=== PATIENT | female | born 1990 | race Caucasian/White ===

== ENCOUNTER 2021-02-05 00:50 | Inpatient (IN) | payer OTHER ==
[2021-02-05] MEDS ORDERED: BUTORPHANOL TARTRATE 1 MG/ML VIAL IVPB ONE (01:05)
[2021-02-05] MEDS ORDERED: PROMETHAZINE HCL 25 MG/1 ML VIAL IVPB ONE (01:05)
[2021-02-05] MEDS ORDERED: DEXTROSE 5%-LACTATED RINGERS 1,000 ML IV SCH (01:05)
[2021-02-05] MEDS: DEXTROSE 5%-LACTATED RINGERS 1,000 ML IV SCH (01:30)
[2021-02-05 02:00] LABS: BASO % 0.2 % (0-2.0); HEMATOCRIT 32.8 % (32.4-45.2); HEMOGLOBIN 11.2 GM/dL (10.7-15.3); LYMPH % 23.5 % (8-40); MCH 27.5 pg (25.7-33.7); MCHC 34.2 g/dl (32.0-36.0); MEAN CELL VOLUME 80.5 fl (80-96); MEAN PLT VOLUME 10.3 fl (7.5-11.1); MONO % 7.2 % (3.8-10.2); NEUT % 68.1 % (42.8-82.8); PLATELET COUNT 201 10^3/uL (134-434); RBC 4.08 M/mm3 (3.60-5.2); RDW 13.4 % (11.6-15.6); WHITE BLOOD COUNT 9.3 K/mm3 (4.0-10.0)
[2021-02-05 02:07] LABS: INR 0.9 (0.83-1.09); PROTHROMBIN TIME (PATIENT) 10.5 SEC (9.7-13.0)
[2021-02-05 02:10] LABS: ACTIVATED PTT 27.7 SECONDS (25.2-36.5)
[2021-02-05 02:16] LABS: CALCIUM 8.2 mg/dL (8.5-10.1)
[2021-02-05 02:17] LABS: BLOOD UREA NITROGEN 12.6 mg/dL (7-18)
[2021-02-05 02:20] LABS: CREATININE 0.6 mg/dL (0.55-1.3)
[2021-02-05 02:37] VITALS: BMI 39.4
[2021-02-05 02:45] LABS: SYPHILIS W/ RPR CONF NON-REACTIVE (NONREACTIVE)
[2021-02-05 03:14] LABS: HIV INTERPRETATION NEGATIVE (NEGATIVE)
[2021-02-05] MEDS ORDERED: OXYTOCIN 20 UNITS in 0.9% NS 20 UNIT/1,000 ML INFUS.BAG IV ONE (03:52)
[2021-02-05] MEDS ORDERED: LIDOCAINE HCL 1% PRESERVATIVE FREE - 30ML VIAL ONE (03:53)
[2021-02-05] MEDS: IBUPROFEN 600 MG TABLET (FP) PO PRN ×2 (04:30→10:16)
[2021-02-05] MEDS ORDERED: IBUPROFEN 600 MG TABLET (FP) PO ONE (04:31)
[2021-02-05] MEDS ORDERED: ACETAMINOPHEN 325 MG TABLET (FP) ONE (04:31)
[2021-02-05] MEDS ORDERED: WITCH HAZEL 50% (TUCKS) 40 PAD/JAR PAD TP PRN (04:34)
[2021-02-05] MEDS ORDERED: BENZOCAINE 28 GM HEMORRHOIDAL OINTMENT TP PRN (04:34)
[2021-02-05] MEDS ORDERED: oxyCODONE HCL 5 MG TABLET PO PRN (04:34)
[2021-02-05] MEDS ORDERED: METHYLERGONOVINE MALEATE 0.2 MG/1 ML AMP IM PRN (04:34)
[2021-02-05] MEDS ORDERED: BENZOCAINE 20% 57 GM BOTTLE TP PRN (04:34)
[2021-02-05] MEDS ORDERED: BISACODYL 10 MG SUPP.RECT RC PRN (04:34)
[2021-02-05] MEDS ORDERED: ACETAMINOPHEN 325 MG TABLET (FP) PO PRN (04:34)
[2021-02-05] MEDS ORDERED: OXYTOCIN 20 UNITS in 0.9% NS 20 UNIT/1,000 ML INFUS.BAG IV SCH (04:45)
[2021-02-05] MEDS: PRENATAL VITAMINS W/ FOLIC ACID TABLET (FP) PO SCH (10:17)
[2021-02-06 06:58] LABS: BASO % 0.3 % (0-2.0); EOS % 0.4 % (0-4.5); HEMATOCRIT 34.9 % (32.4-45.2); HEMOGLOBIN 11.6 GM/dL (10.7-15.3); LYMPH % 24.3 % (8-40); MCH 27.2 pg (25.7-33.7); MCHC 33.4 g/dl (32.0-36.0); MEAN CELL VOLUME 81.6 fl (80-96); MEAN PLT VOLUME 10.1 fl (7.5-11.1); MONO % 5.9 % (3.8-10.2); NEUT % 69.1 % (42.8-82.8); PLATELET COUNT 203 10^3/uL (134-434); RBC 4.28 M/mm3 (3.60-5.2); RDW 13.9 % (11.6-15.6); WHITE BLOOD COUNT 10.3 K/mm3 (4.0-10.0)
[2021-02-06] MEDS: DEXTROSE 5%-LACTATED RINGERS 1,000 ML IV SCH (09:48)
[2021-02-06] MEDS: PRENATAL VITAMINS W/ FOLIC ACID TABLET (FP) PO SCH (09:49)
[2021-02-06 21:40] VITALS: PULSE 73
[2021-02-06] MEDS ORDERED: SENNOSIDES/DOCUSATE COMBO (SENNA PLUS) TABLET (UD) PO PRN (22:00)
[2021-02-07] MEDS: IBUPROFEN 600 MG TABLET (FP) PO PRN (09:55)
[2021-02-07] MEDS: PRENATAL VITAMINS W/ FOLIC ACID TABLET (FP) PO SCH (10:00)
[2021-02-07 11:27] VITALS: BP 111/67; TEMP 98.1
[2021-02-11 09:30] LABS: POC NITRAZINE POS
== END 2021-02-07 11:20 | disposition home or self-care (01) | DRG 807 ==
LOC: JLDR 00:50 → J3W 05:45
PROVIDERS: ADMIT Obstetrics & Gynecology; ATTEND Obstetrics & Gynecology
PROC: 0HQ9XZZ Repair Perineum Skin, External Approach (ICD-10-PCS; principal; 2021-02-05)
PROC: 10E0XZZ Delivery of Products of Conception, External Approach (ICD-10-PCS; 2021-02-05)
DX: O70.0 First degree perineal laceration during delivery (principal); Z37.0 Single live birth; Z3A.38 38 weeks gestation of pregnancy
CPT/HCPCS: 36415; 59409; 80048; 83986-QW; 85025; 85610; 85730; 86780; 86850; 86900; 86901; 87389; C9803; U0003; U0005